=== PATIENT | female | born 1980 | race Hispanic/Latino ===

== ENCOUNTER → 2019-10-12 | Outpatient (CLI) | payer OTHER ==
[~2019-10-12] MED LIST: IBUPROFEN400 MG PO
--- NOTE | 2019-10-12 11:42 | Diagnostic Imaging Report ---
EXAMINATION: KNEE RIGHT THREE VIEWS INDICATION: Right knee pain COMPARISON: None FINDINGS: No acute fracture or dislocation. Alignment is anatomic. Mild tricompartment degenerative changes. No substantial joint effusion. Numerous osteochondral loose bodies in the posterior joint space and the suprapatellar joint space. IMPRESSION: No acute osseous injury. Mild tricompartment degenerative changes. Numerous intra-articular osteochondral loose bodies. Signed by: Jair Prather MD on 10/12/2019 11:39 AM
== END ==
LOC: RAD 10:49
PROVIDERS: ATTEND Family Medicine
DX: M25.561 Pain in right knee (principal)